=== PATIENT | female | born 1950 | race Caucasian/White ===

== ENCOUNTER → 2016-12-28 | Outpatient (CLI) | payer MEDICARE | END | disposition home or self-care (01) | LOC: CVU 14:55 | PROVIDERS: ATTEND Family Medicine | DX: I70.201 Unspecified atherosclerosis of native arteries of extremities, right leg (principal); I74.8 Embolism and thrombosis of other arteries; E11.9 Type 2 diabetes mellitus without complications; I10 Essential (primary) hypertension; F17.200 Nicotine dependence, unspecified, uncomplicated; F10.20 Alcohol dependence, uncomplicated; E03.9 Hypothyroidism, unspecified | CPT/HCPCS: 93922; 93925; 93978 ==

== ENCOUNTER 2017-01-05 13:30 | Day surgery (SDC) | payer MEDICARE ==
[2017-01-04 10:52] LABS: HEMATOCRIT 49.3 % (34.6-47.8); HEMOGLOBIN 16.2 g/dL (11.7-16.4)
[2017-01-04 11:02] LABS: BLOOD UREA NITROGEN 23 mg/dL (7-18)
[~2017-01-05] VITALS: Ht 160 cm; Wt 68.7 kg
[~2017-01-05 13:30] MED LIST: ATOR20TA9 PO; CHOL200024 PO; CITA20TA5 PO; DIPH25CA61 PO; DISU250T15 PO; FLUTICASONE PROP NAS; LEVO25TA4 PO; METF500T9 PO; METO25TA91 PO; VISIPAQUE 270 MG/ML, 150ML BOTTLE ONE
[2017-01-05 14:13] VITALS: BP 127/85
[2017-01-05] MEDS ORDERED: SODIUM CHLORIDE 0.9% 1,000 ML IV SCH ×2 (14:41→18:00)
[2017-01-05] MEDS ORDERED: LIDOCAINE 2%, 20ML ONE (14:43)
[2017-01-05] MEDS ORDERED: PROTAMINE SULFATE 10 MG/ML, 25ML ONE (15:13)
[2017-01-05] MEDS ORDERED: MIDAZOLAM 1 MG/ML, 5ML ONE ×2 (15:14)
[2017-01-05] MEDS ORDERED: FLUMAZENIL 0.1 MG/1 ML, 5ML ONE (15:15)
[2017-01-05] MEDS ORDERED: FENTANYL PF 100 MCG/2ML ONE (15:15)
[2017-01-05] MEDS ORDERED: HEPARIN 5,000 UNITS/ML, 1ML ONE (15:16)
[2017-01-05] MEDS ORDERED: NALOXONE 1 MG/ML, 2ML ONE (15:16)
[2017-01-05] MEDS ORDERED: HYDROcodone/APAP 5/325 TABLET ONE (17:06)
[2017-01-05] MEDS ORDERED: HYDROcodone/APAP 5/325 TABLET PO PRN (17:30)
[2017-01-05] MEDS ORDERED: ONDANSETRON 2MG/ML, 2ML IVPush PRN (17:30)
[2017-01-05] MEDS ORDERED: morphine SULFATE 10 MG/ML, 1ML IVPush PRN (18:00)
[2017-01-05] MEDS ORDERED: HYDR-3240 PO (18:23)
[2017-01-18] MEDS ORDERED: CLOP75TA22 PO (12:19)
== END 2017-01-05 20:00 | disposition home or self-care (01) ==
LOC: RAD 13:30 → EDSTATUS 15:30 → 4NOR 16:52 → RAD 20:00
PROVIDERS: ATTEND Surgery
DX: I73.9 Peripheral vascular disease, unspecified (principal); I77.1 Stricture of artery; I10 Essential (primary) hypertension; E11.9 Type 2 diabetes mellitus without complications; E03.9 Hypothyroidism, unspecified; J44.9 Chronic obstructive pulmonary disease, unspecified; Z88.0 Allergy status to penicillin; F17.210 Nicotine dependence, cigarettes, uncomplicated
CPT/HCPCS: 36200; 36415; 75625; 75716; 80048; 85025; 93005; C1751; C1769; C1894; J2250; J2310; J3010; J3490; J7030; Q9966; 75630; J1644; J2720

== ENCOUNTER → 2017-01-09 | Outpatient (CLI) | payer MEDICARE ==
[~2017-01-09] MED LIST changes: +HYDR-3240 PO; -VISIPAQUE 270 MG/ML, 150ML BOTTLE ONE
== END | disposition home or self-care (01) ==
LOC: CVU 08:29
PROVIDERS: ATTEND Surgery
DX: I65.23 Occlusion and stenosis of bilateral carotid arteries (principal); I70.261 Atherosclerosis of native arteries of extremities with gangrene, right leg; I10 Essential (primary) hypertension; E11.9 Type 2 diabetes mellitus without complications; Z87.891 Personal history of nicotine dependence
CPT/HCPCS: 93880

== ENCOUNTER 2017-01-15 09:30 | Inpatient (IN) | payer MEDICARE ==
[~2017-01-15] VITALS: Ht 160 cm; Wt 72.6 kg
[~2017-01-15 09:30] MED LIST changes: +BACITRACIN 50,000 UNIT ONE; +HEPARIN 1,000 UNITS/ML, 10ML ONE; +PAPAVERINE 30 MG/ML, 2ML ONE; +THROMBIN 20,000 UNIT VIAL TP ONE
[2017-01-15] MEDS ORDERED: BUPIVACAINE/PF 0.25% ONE (10:03)
[2017-01-15] MEDS ORDERED: PROTAMINE SULFATE 10 MG/ML, 5ML ONE (10:03)
[2017-01-15] MEDS ORDERED: EPINEPHRINE 1 MG/ML, 1ML ONE (10:03)
[2017-01-15] MEDS ORDERED: LACTATED RINGERS 1,000 ML IV SCH (10:24)
[2017-01-15] MEDS ORDERED: ONDANSETRON 2MG/ML, 2ML ONE (10:25)
[2017-01-15] MEDS ORDERED: SUCCINYLCHOLINE 20 MG/ML, 10ML ONE (10:25)
[2017-01-15] MEDS ORDERED: ALBUTEROL SULFATE 200 PUFFS/8.5 GR INH ONE (10:25)
[2017-01-15] MEDS ORDERED: PROPOFOL 10 MG/ML, 20ML ONE (10:25)
[2017-01-15] MEDS ORDERED: DEXAMETHASONE 4 MG/ML, 1ML ONE (10:25)
[2017-01-15] MEDS ORDERED: LIDOCAINE 1%, 2ML SQ PRN (10:30)
[2017-01-15] MEDS ORDERED: ASPI-496 PO (10:41)
[2017-01-15] MEDS ORDERED: LIDOCAINE 1%, 2ML ONE (10:42)
[2017-01-15] MEDS ORDERED: CEFAZOLIN PMX 2GM/50ML 50 ML IVPB ONE (11:00)
[2017-01-15] MEDS ORDERED: PLEASE ENTER HEIGHT AND WEIGHT MC SCH (11:00)
[2017-01-15] MEDS ORDERED: FENTANYL PF 250 MCG/5ML ONE ×2 (11:39→13:52)
[2017-01-15] MEDS ORDERED: MIDAZOLAM 1 MG/ML, 2ML ONE (11:40)
[2017-01-15] MEDS ORDERED: METF500T4 PO (11:48)
[2017-01-15] MEDS ORDERED: VANCOMYCIN 1,000 MG ONE (12:27)
[2017-01-15] MEDS ORDERED: ONDANSETRON 2MG/ML, 2ML IVPush PRN (13:00)
[2017-01-15] MEDS ORDERED: ALBUTEROL/IPRATROPIUM 2.5MG/0.5MG, 3 ML NPPB PRN ×2 (13:00→18:00)
[2017-01-15] MEDS ORDERED: MIDAZOLAM 1 MG/ML, 2ML IV PRN (13:00)
[2017-01-15] MEDS ORDERED: FENTANYL PF 100 MCG/2ML IV PRN (13:00)
[2017-01-15] MEDS ORDERED: ACETAMINOPHEN 325 MG TABLET PO PRN ×2 (13:00→17:30)
[2017-01-15] MEDS ORDERED: EPHEDRINE 50 MG/ML, 1ML IVPush PRN (13:00)
[2017-01-15] MEDS ORDERED: OXYcodone 5 MG/5 ML ORAL.SOL UDC PO PRN (13:00)
[2017-01-15] MEDS ORDERED: HEPARIN 1,000 UNITS/ML, 10ML ONE (13:16)
[2017-01-15] MEDS ORDERED: VISIPAQUE 270 MG/ML, 50ML BOTTLE ONE (14:12)
[2017-01-15] MEDS ORDERED: CLOPIDOGREL 300 MG TABLET PO ONE (15:00)
[2017-01-15] MEDS ORDERED: ALBUTEROL/IPRATROPIUM 2.5MG/0.5MG, 3 ML ONE (15:10)
[2017-01-15] MEDS ORDERED: HYDROmorphone 1 MG/ML, 1ML ONE (15:57)
[2017-01-15] MEDS: HYDROmorphone 1 MG/ML, 1ML IV PRN ×2 (16:00→16:06)
[2017-01-15 16:50] VITALS: BP 91/62
[2017-01-15] MEDS ORDERED: hydrALAzine 20 MG/ML, 1ML IV PRN (17:00)
[2017-01-15] MEDS ORDERED: ONDANSETRON 2MG/ML, 2ML IV PRN (17:30)
[2017-01-15] MEDS: LACTATED RINGERS 1,000 ML IV SCH ×2 (17:30→20:27)
[2017-01-15] MEDS ORDERED: DIPHENHYDRAMINE 25 MG CAPSULE PO PRN (18:30)
[2017-01-15 20:04] VITALS: BP 93/62
[2017-01-15] MEDS: ATORVASTATIN 20 MG TABLET PO SCH (20:21)
[2017-01-15] MEDS ORDERED: VANCOMYCIN PMX 1GM/200ML 200 ML IVPB ONE (22:00)
[2017-01-15] MEDS: ENOXAPARIN 40 MG/0.4 ML SQ SCH (22:05)
[2017-01-15] MEDS: INSULIN REGULAR, HUMAN 100 UNIT/ML 3ML VIAL LOW DOSE SS SQ-INSULIN SCH (22:06)
[2017-01-15] MEDS: HYDROcodone/APAP 5/325 TABLET PO PRN (23:22)
[2017-01-16 00:10] VITALS: BP 97/58
[2017-01-16] MEDS: morphine SULFATE 10 MG/ML, 1ML IV PRN ×2 (01:53→08:46)
[2017-01-16] MEDS: HYDROcodone/APAP 5/325 TABLET PO PRN ×5 (03:44→21:53)
[2017-01-16 03:55] VITALS: BP 99/60
[2017-01-16 05:20] LABS: HEMATOCRIT 39.7 % (34.6-47.8); HEMOGLOBIN 12.9 g/dL (11.7-16.4); WHITE BLOOD COUNT 14.3 x10^3/uL (3.4-10)
[2017-01-16 05:34] LABS: BLOOD UREA NITROGEN 17 mg/dL (7-18)
[2017-01-16] MEDS: METOPROLOL SUCCINATE 25 MG TAB.ER.24H PO SCH (06:00)
[2017-01-16] MEDS: LEVOTHYROXINE 25 MCG TABLET PO SCH (06:07)
[2017-01-16] MEDS: INSULIN REGULAR, HUMAN 100 UNIT/ML 3ML VIAL LOW DOSE SS SQ-INSULIN SCH ×4 (06:21→21:25)
[2017-01-16] MEDS: ASPIRIN 81 MG TABLET EC PO SCH (06:24)
[2017-01-16 08:02] VITALS: BP 88/57
[2017-01-16] MEDS: CHOLECALCIFEROL 1,000 UNIT TABLET PO SCH (08:46)
[2017-01-16] MEDS: CITALOPRAM 20 MG TABLET PO SCH (08:46)
[2017-01-16] MEDS: CLOPIDOGREL 75 MG TABLET PO SCH (08:46)
[2017-01-16] MEDS: FLUTICASONE NASAL SPRAY 16GM NAS SCH (09:00)
[2017-01-16 13:42] VITALS: BP 95/61
[2017-01-16] MEDS: LACTATED RINGERS 1,000 ML IV SCH ×2 (17:02→21:26)
[2017-01-16 20:44] VITALS: BP 100/63
[2017-01-16] MEDS: ENOXAPARIN 40 MG/0.4 ML SQ SCH (21:19)
[2017-01-16] MEDS: ATORVASTATIN 20 MG TABLET PO SCH (21:19)
[2017-01-17] MEDS: HYDROcodone/APAP 5/325 TABLET PO PRN ×6 (02:27→23:55)
[2017-01-17 02:40] VITALS: BP 118/71
[2017-01-17] MEDS: METOPROLOL SUCCINATE 25 MG TAB.ER.24H PO SCH (06:00)
[2017-01-17] MEDS: LEVOTHYROXINE 25 MCG TABLET PO SCH (06:03)
[2017-01-17] MEDS: ASPIRIN 81 MG TABLET EC PO SCH (06:03)
[2017-01-17] MEDS: INSULIN REGULAR, HUMAN 100 UNIT/ML 3ML VIAL LOW DOSE SS SQ-INSULIN SCH ×4 (06:06→21:00)
[2017-01-17 06:10] LABS: HEMATOCRIT 41.1 % (34.6-47.8); HEMOGLOBIN 13.5 g/dL (11.7-16.4); WHITE BLOOD COUNT 8.6 x10^3/uL (3.4-10)
[2017-01-17 07:20] VITALS: BP 94/63
[2017-01-17] MEDS: CITALOPRAM 20 MG TABLET PO SCH (08:10)
[2017-01-17] MEDS: CLOPIDOGREL 75 MG TABLET PO SCH (08:10)
[2017-01-17] MEDS: CHOLECALCIFEROL 1,000 UNIT TABLET PO SCH (08:10)
[2017-01-17] MEDS: FLUTICASONE NASAL SPRAY 16GM NAS SCH (09:00)
[2017-01-17 13:14] VITALS: BP 114/72
[2017-01-17] MEDS: LACTATED RINGERS 1,000 ML IV SCH (16:34)
[2017-01-17] MEDS: ATORVASTATIN 20 MG TABLET PO SCH (19:28)
[2017-01-17 19:46] VITALS: BP 129/75
[2017-01-17] MEDS: ENOXAPARIN 40 MG/0.4 ML SQ SCH (21:16)
[2017-01-18] MEDS: LACTATED RINGERS 1,000 ML IV SCH (00:40)
[2017-01-18 03:39] VITALS: BP 123/78
[2017-01-18] MEDS: HYDROcodone/APAP 5/325 TABLET PO PRN ×2 (05:51→09:46)
[2017-01-18] MEDS: ASPIRIN 81 MG TABLET EC PO SCH (05:51)
[2017-01-18] MEDS: LEVOTHYROXINE 25 MCG TABLET PO SCH (05:53)
[2017-01-18] MEDS: METOPROLOL SUCCINATE 25 MG TAB.ER.24H PO SCH (05:55)
[2017-01-18] MEDS: INSULIN REGULAR, HUMAN 100 UNIT/ML 3ML VIAL LOW DOSE SS SQ-INSULIN SCH ×2 (05:57→11:00)
[2017-01-18 07:40] VITALS: BP 105/67
[2017-01-18] MEDS: CLOPIDOGREL 75 MG TABLET PO SCH (07:59)
[2017-01-18] MEDS: CITALOPRAM 20 MG TABLET PO SCH (07:59)
[2017-01-18] MEDS: CHOLECALCIFEROL 1,000 UNIT TABLET PO SCH (08:00)
[2017-01-18] MEDS: FLUTICASONE NASAL SPRAY 16GM NAS SCH ×2 (08:00→08:01)
[2017-01-18 12:01] VITALS: BP 140/67
[2017-01-18] MEDS ORDERED: CLOP75TA52 PO (12:19)
[2017-01-18] MEDS ORDERED: HYDR-3240 PO (12:20)
[2017-01-18] MEDS ORDERED: SENN-25 PO (12:22)
== END 2017-01-18 12:56 | disposition home or self-care (01) | DRG 270 ==
LOC: ORIP 09:48 → EDSTATUS 11:30 → 4NOR 16:44 → DCLOUNGE 01-18 12:16
PROVIDERS: ADMIT Surgery; ATTEND Surgery
PROC: B41F1ZZ Fluoroscopy of Right Lower Extremity Arteries using Low Osmolar Contrast (ICD-10-PCS; 2017-01-15)
PROC: 04CK0ZZ Extirpation of Matter from Right Femoral Artery, Open Approach (ICD-10-PCS; 2017-01-15)
PROC: 047H34Z Dilation of Right External Iliac Artery with Drug-eluting Intraluminal Device, Percutaneous Approach (ICD-10-PCS; 2017-01-15)
PROC: 047C34Z Dilation of Right Common Iliac Artery with Drug-eluting Intraluminal Device, Percutaneous Approach (ICD-10-PCS; 2017-01-15)
PROC: 04UK0KZ Supplement Right Femoral Artery with Nonautologous Tissue Substitute, Open Approach (ICD-10-PCS; 2017-01-15)
PROC: 04UH0KZ Supplement Right External Iliac Artery with Nonautologous Tissue Substitute, Open Approach (ICD-10-PCS; 2017-01-15)
PROC: B4101ZZ Fluoroscopy of Abdominal Aorta using Low Osmolar Contrast (ICD-10-PCS; 2017-01-15)
PROC: 04CH0ZZ Extirpation of Matter from Right External Iliac Artery, Open Approach (ICD-10-PCS; principal; 2017-01-15 11:30)
DX: E11.52 Type 2 diabetes mellitus with diabetic peripheral angiopathy with gangrene (principal); E43 Unspecified severe protein-calorie malnutrition; J44.9 Chronic obstructive pulmonary disease, unspecified; I10 Essential (primary) hypertension; E03.9 Hypothyroidism, unspecified; E78.00 Pure hypercholesterolemia, unspecified; E78.5 Hyperlipidemia, unspecified; Z72.0 Tobacco use; Z88.0 Allergy status to penicillin; Z88.1 Allergy status to other antibiotic agents; Z82.49 Family history of ischemic heart disease and other diseases of the circulatory system
CPT/HCPCS: 36415; 37221; 75710; 80048; 82040; 82962; 85025; 86850; 86900; 94640; C1725; J0171; J1100; J1170; J1644; J1650; J1815; J2250; J2405; J2704; J2720; J3010; J3370; J3490; J7620; Q9966; C1751; C1768; C1769; C1874; C1894; J0330; J2270; J2440; J7120

== ENCOUNTER 2017-01-29 12:07 | Day surgery (SDC) | payer MEDICARE ==
[~2017-01-29] VITALS: Ht 160 cm; Wt 66.4 kg
[~2017-01-29 12:07] MED LIST changes: +ASPI-496 PO; -BACITRACIN 50,000 UNIT ONE; +CLOP75TA52 PO; -HEPARIN 1,000 UNITS/ML, 10ML ONE; +METF500T4 PO; -PAPAVERINE 30 MG/ML, 2ML ONE; +SENN-25 PO; -THROMBIN 20,000 UNIT VIAL TP ONE
[2017-01-29] MEDS ORDERED: LACTATED RINGERS 1,000 ML IV SCH (12:41)
[2017-01-29 12:44] VITALS: BP 116/73
[2017-01-29] MEDS ORDERED: LIDOCAINE 1%, 2ML SQ PRN (13:00)
[2017-01-29] MEDS ORDERED: VANCOMYCIN PMX 1GM/200ML 200 ML IV ONE (13:30)
[2017-01-29] MEDS ORDERED: FENTANYL PF 100 MCG/2ML ONE (14:24)
[2017-01-29] MEDS ORDERED: MIDAZOLAM 1 MG/ML, 2ML ONE ×2 (14:24)
[2017-01-29] MEDS ORDERED: PROPOFOL 10 MG/ML, 20ML ONE (14:47)
[2017-01-29] MEDS ORDERED: NEOSTIGMINE 1 MG/ML, 10ML ONE (14:47)
[2017-01-29] MEDS ORDERED: BUPIVACAINE/PF 0.5% ONE (15:14)
[2017-01-29] MEDS ORDERED: FENTANYL PF 100 MCG/2ML IV PRN (15:30)
[2017-01-29] MEDS ORDERED: OXYcodone 5 MG/5 ML ORAL.SOL UDC PO PRN (15:30)
[2017-01-29] MEDS ORDERED: ACETAMINOPHEN 325 MG TABLET PO PRN (15:30)
[2017-01-29] MEDS ORDERED: HYDROmorphone 1 MG/ML, 1ML IV PRN (15:30)
[2017-01-29] MEDS ORDERED: ONDANSETRON 2MG/ML, 2ML IVPush PRN (15:30)
[2017-01-29] MEDS ORDERED: OXYcodone 5 MG/5 ML ORAL.SOL UDC ONE (15:48)
== END 2017-01-29 17:05 ==
LOC: OUT 12:07
PROVIDERS: ATTEND Surgery
DX: E11.52 Type 2 diabetes mellitus with diabetic peripheral angiopathy with gangrene (principal); I10 Essential (primary) hypertension; E03.9 Hypothyroidism, unspecified; J44.9 Chronic obstructive pulmonary disease, unspecified; E78.00 Pure hypercholesterolemia, unspecified; Z88.0 Allergy status to penicillin; Z82.49 Family history of ischemic heart disease and other diseases of the circulatory system; F17.210 Nicotine dependence, cigarettes, uncomplicated
CPT/HCPCS: 28820; 82962; 88305; J2250; J2704; J2710; J3010; J3370; J3490; J7120

== ENCOUNTER → 2017-06-05 | Outpatient (CLI) | payer MEDICARE | LOC: CVU 06:36 | PROVIDERS: ATTEND Surgery | DX: I74.5 Embolism and thrombosis of iliac artery (principal); I77.1 Stricture of artery; Z87.891 Personal history of nicotine dependence | CPT/HCPCS: 93922; 93925; 93978 ==

== ENCOUNTER → 2017-06-20 | Outpatient (CLI) | payer MEDICARE ==
[~2017-06-20] MED LIST changes: +BUPR150T20 PO; +CHOL10003 PO
[2017-06-20 10:04] LABS: BASOPHILS # (AUTO) 0.06 x10^3/uL (0-0.1); BASOPHILS % (AUTO) 1 % (0-1); EOSINOPHILS % (AUTO) 1 % (1-7); LYMPHOCYTES % (AUTO) 23 % (22-44); MD NO; MEAN CORPUSCULAR HEMOGLOBIN 31.2 pg (27.0-34.8); MEAN CORPUSCULAR HGB CONC 32.8 g/dL (32.4-35.8); MEAN CORPUSCULAR VOLUME 94.9 fL (80-100); MEAN PLATELET VOLUME 8.1 fL (7.4-10.4); MONOCYTES # (AUTO) 0.45 x10^3/uL (0.2-0.8); MONOCYTES % (AUTO) 5 % (2-9); NEUTROPHILS # (AUTO) 6.75 x10^3/uL (1.8-6.8); NEUTROPHILS % (AUTO) 71 % (42-75); PLATELET COUNT 352 x10^3/uL (130-400); RED BLOOD COUNT 4.93 x10^6/uL (3.82-5.3); RED CELL DISTRIBUTION WIDTH 14.4 % (9.6-15.2)
[2017-06-20 10:16] LABS: ANION GAP 9 mmol/L (5-15); CALCIUM 9.2 mg/dL (8.5-10.1); CHLORIDE 105 mmol/L (98-107)
[2017-06-20 10:17] LABS: CREATININE 0.61 mg/dL (0.55-1.02)
== END | disposition home or self-care (01) ==
LOC: STAR 09:07
PROVIDERS: ATTEND Surgery
DX: I73.9 Peripheral vascular disease, unspecified (principal)
CPT/HCPCS: 36415; 80048; 85025

== ENCOUNTER 2017-06-25 12:15 | Day surgery (SDC) | payer MEDICARE ==
[~2017-06-25] VITALS: Ht 157.5 cm; Wt 63.2 kg
[2017-06-25] MEDS ORDERED: SODIUM CHLORIDE 0.9% 1,000 ML IV SCH ×2 (13:00→17:30)
[2017-06-25] MEDS ORDERED: CLOP75TA52 PO (13:02)
[2017-06-25 13:03] VITALS: BP 110/76
[2017-06-25] MEDS ORDERED: VISIPAQUE 270 MG/ML, 150ML BOTTLE ONE (14:00)
[2017-06-25] MEDS ORDERED: CLINDAMYCIN PMX 600MG/50ML 50 ML IV ONE (14:00)
[2017-06-25] MEDS ORDERED: LIDOCAINE 2%, 20ML ONE (15:29)
[2017-06-25] MEDS ORDERED: HEPARIN 1,000 UNITS/ML, 10ML ONE (15:46)
[2017-06-25] MEDS ORDERED: NALOXONE 1 MG/ML, 2ML ONE (15:46)
[2017-06-25] MEDS ORDERED: FLUMAZENIL 0.1 MG/1 ML, 5ML ONE (15:46)
[2017-06-25] MEDS ORDERED: PROTAMINE SULFATE 10 MG/ML, 25ML ONE (15:46)
[2017-06-25] MEDS ORDERED: FENTANYL PF 100 MCG/2ML ONE (15:46)
[2017-06-25] MEDS ORDERED: MIDAZOLAM 1 MG/ML, 2ML ONE (15:46)
[2017-06-25] MEDS ORDERED: HYDROcodone/APAP 5/325 TABLET PO PRN (17:30)
[2017-06-25] MEDS ORDERED: MORPHINE SULFATE 4 MG/ML, 1ML IV PRN (17:30)
[2017-06-25] MEDS ORDERED: ONDANSETRON 2MG/ML, 2ML IVPush PRN (17:30)
[2017-06-25 19:00] VITALS: BP 118/70
[2017-06-25] MEDS ORDERED: ATORVASTATIN 20 MG TABLET PO SCH (21:00)
[2017-06-25] MEDS ORDERED: INSULIN REGULAR, HUMAN 100 UNIT/ML 3ML VIAL LOW DOSE SS SQ-INSULIN SCH (21:00)
[2017-06-26] MEDS ORDERED: METOPROLOL SUCCINATE 25 MG TAB.ER.24H PO SCH (06:00)
[2017-06-26] MEDS ORDERED: LEVOTHYROXINE 25 MCG TABLET PO SCH (06:00)
[2017-06-26] MEDS ORDERED: ASPIRIN 81 MG TABLET EC PO SCH (06:00)
[2017-06-26] MEDS ORDERED: CHOLECALCIFEROL 1,000 UNIT TABLET PO SCH (09:00)
[2017-06-26] MEDS ORDERED: DISULFIRAM 250 MG TABLET PO SCH (09:00)
[2017-06-26] MEDS ORDERED: BUPROPION SR 150 MG TABLET PO SCH (09:00)
[2017-06-26] MEDS ORDERED: FLUTICASONE NASAL SPRAY 16GM NAS SCH (09:00)
[2017-06-26] MEDS ORDERED: CLOPIDOGREL 75 MG TABLET PO SCH (09:00)
[2017-06-28] MEDS ORDERED: metFORMIN 500 MG TABLET PO SCH (08:00)
== END 2017-06-25 19:55 | disposition home or self-care (01) ==
LOC: OUT 12:15 → 4NOR 16:47 → OUT 19:55
PROVIDERS: ATTEND Surgery
DX: I70.213 Atherosclerosis of native arteries of extremities with intermittent claudication, bilateral legs (principal); I10 Essential (primary) hypertension; E78.00 Pure hypercholesterolemia, unspecified; E11.9 Type 2 diabetes mellitus without complications; J44.9 Chronic obstructive pulmonary disease, unspecified; Z98.890 Other specified postprocedural states
CPT/HCPCS: 36200; 75625; 75716; 99156; 99157; C1751; C1769; C1894; J2250; J3010; J3490; J7030; Q9966; J1644; J2720; J2310

== ENCOUNTER → 2017-11-02 | Outpatient (CLI) | payer MEDICARE | LOC: CVU 13:22 | PROVIDERS: ATTEND Surgery | DX: I77.1 Stricture of artery (principal); I70.203 Unspecified atherosclerosis of native arteries of extremities, bilateral legs; E11.51 Type 2 diabetes mellitus with diabetic peripheral angiopathy without gangrene; F17.210 Nicotine dependence, cigarettes, uncomplicated; E78.5 Hyperlipidemia, unspecified; I10 Essential (primary) hypertension | CPT/HCPCS: 93922; 93925 ==

== ENCOUNTER → 2018-06-11 | Outpatient (CLI) | payer MEDICARE ==
[~2018-06-11] MED LIST changes: +ATOR20TA37 PO; -ATOR20TA9 PO; -CITA20TA5 PO; +CITA20TA6 PO; +METF500T17 PO; -METF500T4 PO
== END | disposition home or self-care (01) ==
LOC: CVU 06:33
PROVIDERS: ATTEND Surgery
DX: I74.3 Embolism and thrombosis of arteries of the lower extremities (principal); E11.9 Type 2 diabetes mellitus without complications; E78.5 Hyperlipidemia, unspecified; I10 Essential (primary) hypertension; F17.210 Nicotine dependence, cigarettes, uncomplicated
CPT/HCPCS: 93922; 93925

== ENCOUNTER → 2019-05-07 | Outpatient (CLI) | payer MEDICARE ==
[~2019-05-07] MED LIST changes: +METF500T12 PO; -METF500T9 PO
== END | disposition home or self-care (01) ==
LOC: CFH 10:48
PROVIDERS: ATTEND Family Medicine
DX: Z13.820 Encounter for screening for osteoporosis (principal); M85.89 Other specified disorders of bone density and structure, multiple sites; I10 Essential (primary) hypertension; Q42.8 Congenital absence, atresia and stenosis of other parts of large intestine; Z87.891 Personal history of nicotine dependence
CPT/HCPCS: 77080

== ENCOUNTER → 2019-11-07 | Outpatient (CLI) | payer MEDICARE ==
[~2019-11-07] MED LIST changes: -BUPR150T20 PO; +BUPR150T28 PO; +METF-754 PO; -METF500T12 PO
== END | disposition home or self-care (01) ==
LOC: CVU 12:26
PROVIDERS: ATTEND Surgery
DX: I77.1 Stricture of artery (principal); I73.9 Peripheral vascular disease, unspecified; E11.9 Type 2 diabetes mellitus without complications; I10 Essential (primary) hypertension; E78.5 Hyperlipidemia, unspecified; J44.9 Chronic obstructive pulmonary disease, unspecified; Z87.891 Personal history of nicotine dependence
CPT/HCPCS: 93922; 93925